=== PATIENT | female | born 1995 | race Caucasian/White ===

== ENCOUNTER 2019-01-01 13:01 | Outpatient (CLI) | payer OTHER ==
[~2019-01-01] VITALS: Ht 165.1 cm; Wt 104.6 kg
[2019-01-01 13:08] VITALS: Ht 165.1 cm; Wt 104.6 kg
--- NOTE | 2019-01-01 15:02 | PN ---
Triage Information Date/Time 01/01/2019 Reason for visit: r/o SROM Weeks of Gestation 37 weeks and 5 days /Para Diabetes: none Hypertention: none Additional information 23 years old with IUP at 37 weeks and 5 days , presented with complaint of LOF this morning small amount of fluid, she denies any contractions or decreased movement. Patient denies any other complaint. Objective Heart Rate: 130's Heart Rate Comments Cat 1 Contractions: None Exam General appearance: Alert and oriented x4 does not appear to be in any acute distress Abdomen: Soft, gravid, fundal height consider gestational age Assessment: Examination done by RN: Negative pooling, negative nitrazine, negative R OM test Adequate ANA noted in ultrasound. Cervical exam: Closed long and thick Laboratory Tests Test 01/01/19 13:10 Membranes Rupture NEGATIVE Results/Medications Results 24 hrs Laboratory Tests Test 01/01/19 13:10 Membranes Rupture NEGATIVE Imaging Results PROCEDURE: US OB. CLINICAL INDICATION: Leaking fluid TECHNIQUE: Multiple sonographic images of the pelvis were obtained. The images were reviewed on a PACS workstation. COMPARISON: No prior studies are available for comparison. FINDINGS: There is a single live intrauterine . cardiac activity is identified at a rate of 148 beats per minute. presentation is cephalic. Placenta is posterior grade II to III Biophysical profile score is as follows: Breathing 2 Movements 2 Tone 2 Fluid volume 2 Amniotic fluid index = 13.4 cm Total biophysical profile score = 8/8 IMPRESSION: Biophysical profile score = 8/8 RPTAT: Disposition: Discharge Assessment/Plan IUP at 37 weeks and 5 days No evidence of premature rupture membrane No evidence of labor testing reassuring Labor precautions kick counts and follow-up within the next week with the office or sooner as needed discussed Patient verbalized understanding. All questions were answered to patient with satisfaction. Danger signs and symptoms reviewed with patient by RN. MAMTA AGUAYO MD Jan 01, 2019 15:02
== END 2019-01-01 14:11 | disposition home or self-care (01) ==
LOC: OBT 13:01 → L-D 13:02 → OBT 14:11
PROVIDERS: ATTEND Obstetrics & Gynecology
DX: O47.1 False labor at or after 37 completed weeks of gestation (principal); Z3A.37 37 weeks gestation of pregnancy
CPT/HCPCS: 76818; 84112; Z7500; G0463